=== PATIENT | male | born 1945 | race Caucasian/White ===

== ENCOUNTER 2021-02-15 13:22 | Outpatient (CLI) | payer MEDICARE, SELFPAY ==
--- NOTE | 2021-02-15 13:52 | CT_ITS ---
WS: [id number] Exam: CT abdomen pelvis wo con [id number] Date/Time of Exam: 02/15/2021 2:09 PM Reason For Exam: BENIGN ENLARGEMENT OF PROSTATE DLP: 767.[address] scans at [facility] use at least one of these dose optimization techniques: automat ed exposure control; mA and/or kV adjustment per patient size (includes targeted exams where dose is matched to clinical indication); or iterative reconstruction. Lower lung zones are clear. Triple vessel coronary artery calcifications are noted. 9 mm low-attenuat ion nodule in the inferior aspect of the right hepatic lobe too small to characterize but could repre sent a small cyst. The liver is otherwise unremarkable. The spleen, stomach and pancreas appear clementina l. The abdominal aorta is normal in caliber. Normal adrenal glands. There are multiple prominent cyst s in the kidneys. The largest cyst is in the left kidney and measures almost 9 cm at greatest diamete r. There are also several hyperdense nodules in both kidneys that may represent proteinaceous or hemo rrhagic cysts. No renal obstruction is noted. No calcified stones noted in the gallbladder. Small bow el loops are not dilated. Normal appendix visualized. No free air. No lymphadenopathy. There is bladd er wall thickening suggesting cystitis. Small bilateral bladder diverticuli noted. There is prostatom egaly. The prostate gland measures 5.8 cm in anterior posterior dimension and approximately 5.4 cm in transverse dimension. Right inguinal hernia contains fat and unobstructed small bowel. Moderate size left inguinal hernia containing only fat. Fat filled periumbilical hernia. No destructive bone lesio ns are seen. CT/CT abdomen pelvis wo con [id number] IMPRESSION: 1. There are multiple prominent cysts in the kidneys. The largest is in the lef t kidney measuring almost 9 cm at greatest diameter. There are also multiple hy perdense nodules in both kidneys which are most likely proteinaceous or hemorrh agic cysts. The largest hyperdense nodule is at the lower pole of the left kidn ey and measures 3.26 cm at greatest diameter. A six-month follow-up CT could be performed to identify any change. 3. Mild prostatomegaly. 4. Right inguinal hernia containing fat and unobstructed small bowel. Fat fille d left inguinal hernia and periumbilical hernia. 5. 9 mm indeterminate nodule in the right lobe of the liver which most likely r epresents a small cyst. 6. Wall thickening of the urinary bladder suggesting cystitis. There also appea r to be small bilateral bladder diverticuli present
== END 2021-02-15 13:23 | disposition home or self-care (01) ==
PROVIDERS: Visit Provider Urology
DX: N40.0 Benign prostatic hyperplasia without lower urinary tract symptoms (principal); N28.1 Cyst of kidney, acquired; K40.90 Unilateral inguinal hernia, without obstruction or gangrene, not specified as recurrent; N32.3 Diverticulum of bladder
CPT/HCPCS: 74176